=== PATIENT | female | born 1970 | race Two or more races ===

== ENCOUNTER 2020-06-25 05:10 | Inpatient (IN) | payer OTHER ==
[~2020-06-25] VITALS: Ht 160 cm; Wt 80.3 kg
[~2020-06-25 05:10] MED LIST: ASA81 MG PO; NATURAL VEG LA1 EACH PO; VENALIV CAPLET1 EACH PO
== END 2020-06-27 11:31 | disposition home or self-care (01) | DRG 743 ==
LOC: CIR.AMB 05:10 → OB/GYN 10:36 → O/R 10:36 → OB/GYN 10:47 → CIR.AMB 12:00 → OB/GYN 13:30 → CIR.AMB 06-29 12:00
PROVIDERS: ADMIT Specialist; ATTEND Specialist
PROC: 0UB74ZZ Excision of Bilateral Fallopian Tubes, Percutaneous Endoscopic Approach (ICD-10-PCS; 2020-06-25)
PROC: 0DNW4ZZ Release Peritoneum, Percutaneous Endoscopic Approach (ICD-10-PCS; 2020-06-25)
PROC: 0UT24ZZ Resection of Bilateral Ovaries, Percutaneous Endoscopic Approach (ICD-10-PCS; principal; 2020-06-25 08:30)
DX: N83.12 Corpus luteum cyst of left ovary (principal); N73.6 Female pelvic peritoneal adhesions (postinfective); N94.89 Other specified conditions associated with female genital organs and menstrual cycle; N83.8 Other noninflammatory disorders of ovary, fallopian tube and broad ligament